=== PATIENT | male | born 1980 | race Caucasian/White ===

== ENCOUNTER 2025-08-13 09:06 | Day surgery (SDC) | payer BC, OTHER ==
[2025-08-12 11:33] VITALS: BMI 33.3
[2025-08-13] MEDS ORDERED: fentaNYL PF 100 MCG/2 ML SYRINGE ONE (10:23)
[2025-08-13 10:27] LABS: #Basophils 0.06 10x3/uL (0.0-0.2); #Eosinophils 0.27 10x3/uL (0.0-0.7); #Monocytes 0.64 10x3/uL (0.11-0.59); #Neutrophils 3.64 10x3/uL (1.40-6.50); %Basophils 0.9 % (0.0-1.0); %Eosinophils 3.9 % (0.0-10.0); %Lymphocytes 33.3 % (21.0-51.0); %Monocytes 9.2 % (0.0-10.0); %Neutrophils 52.6 % (42.0-75.0); Hematocrit 43.1 % (42.0-52.0); Hemoglobin 13.9 g/dL (14.0-18.0); Mean Corpuscular Hemoglobin 27.4 pg (27.0-31.0); Mean Corpuscular Volume 84.8 fL (78.0-98.0); Platelet Count 228 10x3/uL (130-400); Red Blood Cell (RBC) Count 5.08 mill/uL (4.70-6.10); White Blood Cell (WBC) Count 6.93 10x3/uL (4.8-10.8)
[2025-08-13] MEDS ORDERED: CEFAZOLIN 2 GM VIAL ONE (10:31)
[2025-08-13] MEDS ORDERED: PROPOFOL 200 MG/20 ML VIAL ONE (10:47)
[2025-08-13 10:51] LABS: Anion Gap 11 mmol/L (10-20); BUN (Urea Nitrogen) 13 mg/dL (8.9-20.6); Calc. Creatinine Clearance 140 mL/min (70-130); Calcium 9.6 mg/dL (7.8-10.44); Carbon Dioxide 26 mmol/L (22-29); Chloride 108 mmol/L (98-107); Glucose 94 mg/dL (70-105); Potassium 4.1 mmol/L (3.5-5.1); Sodium 141 mmol/L (136-145)
[2025-08-13] MEDS ORDERED: Ondansetron PF 4 MG/2 ML Vial ONE (11:03)
== END 2025-08-13 14:16 | disposition home or self-care (01) ==
LOC: SDC 09:06
PROVIDERS: ATTEND Orthopaedic Surgery
PROC: 01N40ZZ Release Ulnar Nerve, Open Approach (ICD-10-PCS; principal; 2025-08-13)
PROC: 01N54ZZ Release Median Nerve, Percutaneous Endoscopic Approach (ICD-10-PCS; principal; 2025-08-13)
DX: G56.03 Carpal tunnel syndrome, bilateral upper limbs (principal); G56.21 Lesion of ulnar nerve, right upper limb; Z88.0 Allergy status to penicillin; Z90.89 Acquired absence of other organs
CPT/HCPCS: 80048; 85025; 93005; 93010; A6223; J0665; J1100; J2405; J2704